=== PATIENT | male | born 1990 | race Caucasian/White ===

== ENCOUNTER 2016-08-05 05:05 | Emergency (ER) | payer OTHER ==
[~2016-08-05] VITALS: Ht 175.3 cm; Wt 158.8 kg
[2016-08-05 05:12] VITALS: BP 140/62
--- NOTE | 2016-08-05 05:14 | NUR ---
PT TAKEN TO BED 3
--- NOTE | 2016-08-05 05:18 | NUR ---
25 Y/O M W/C/O COUGH, CHILLS AND SOB X 4 DAYS. PT STATES HAS A HX OF ASTHMA FROM A YOUNG AGE AND HAS BEING USING INHALERS AT HOME BUT NOT HELPING HIM MUCH. ER MADE AWARE.
[2016-08-05] MEDS ORDERED: ALBUTEROL 0.083% 2.5 MG/3 ML NEBU INH ONE (05:20)
--- NOTE | 2016-08-05 05:26 | NUR ---
Respiratory Therapist at bedside for respiratory intervention.
--- NOTE | 2016-08-05 06:24 | NUR ---
Dr. Krause evaluating patient at bedside.
[2016-08-05] MEDS ORDERED: NACL 0.9% 1,000 ML IV ONE (06:25)
[2016-08-05] MEDS ORDERED: PROMETH/CODEINE 6.25-10MG/5ML 5 ML UDC PO ONE (06:25)
[2016-08-05] MEDS ORDERED: methylPREDNISolone SS 125 MG in WATER STERILE 2 ML IV ONE (06:25)
[2016-08-05 07:06] VITALS: BP 144/74
--- NOTE | 2016-08-05 07:06 | NUR ---
Patient discharged BY DR VELAZQUEZ with v/s stable. Written and verbal after care instructions given and explained BY ER MD. Patient alert, oriented and verbalized understanding of instructions. Ambulatory with steady gait. All questions addressed prior to discharge. ID band removed. Patient advised to follow up with PMD OR RETURN TO ER IF CONDITION WORSENS. Rx of ROBITUSSIN, AUGMENTIN AND MEDROL DOSEPAK given. Patient educated on indication of medication including possible reaction and side effects. Opportunity to ask questions provided and answered.
== END 2016-08-05 07:06 | disposition home or self-care (01) ==
LOC: MED 05:05
DX: J20.9 Acute bronchitis, unspecified (principal); J04.0 Acute laryngitis; J02.9 Acute pharyngitis, unspecified
CPT/HCPCS: 94640; 96374; 99284; J2930; J7030; J7613

== ENCOUNTER 2016-09-27 21:11 | Emergency (ER) | payer OTHER ==
[~2016-09-27] VITALS: Ht 175.3 cm; Wt 147.4 kg
[2016-09-27 21:34] VITALS: BP 150/85
--- NOTE | 2016-09-27 23:35 | NUR ---
PATIENT LEFT WITHOUT BEING SEEN BY DR. Nguyen. NO FURTHER CARE PROVIDED FOR PATIENT.
== END 2016-09-27 23:35 | disposition left against medical advice (07) ==
LOC: MED 21:11
DX: R06.02 Shortness of breath (principal); Z53.21 Procedure and treatment not carried out due to patient leaving prior to being seen by health care provider

== ENCOUNTER 2016-10-03 21:05 | Emergency (ER) | payer OTHER ==
[~2016-10-03] VITALS: Ht 175.3 cm; Wt 147.4 kg
[2016-10-03 21:11] VITALS: BP 134/111
--- NOTE | 2016-10-03 21:43 | NUR ---
BIB WHEELCHAIR TO ER BED 4 FROM XRAY
--- NOTE | 2016-10-03 21:45 | NUR ---
PATIENT PRESENTS TO ED WITH DIFF OF BREATHING , STARTED IN THE MORNING 1000HOURS AND WITH COUGH . PT DENIES N/V/D; SKIN IS PINK/WARM/DRY; AAOX4 WITH EVEN AND STEADY GAIT; HR EVEN AND REGULAR; PT DENIES ANY FEVER, CP, AT THIS TIME; PATIENT STATES PAIN OF 8/10 AT THIS TIME; VSS; PATIENT POSITIONED FOR COMFORT; HOB ELEVATED; BEDRAILS UP X2; BED DOWN. ER MD MADE AWARE OF PT STATUS.
[2016-10-03] MEDS ORDERED: LORazepam 2 MG/ML VIAL IM/IVP ONE (22:00)
[2016-10-03 22:42] VITALS: BP 127/91
--- NOTE | 2016-10-03 22:42 | NUR ---
Patient discharged with v/s stable. Written and verbal after care instructions given and explained. Patient alert, oriented and verbalized understanding of instructions. Ambulatory with steady gait. All questions addressed prior to discharge. ID band removed. Patient advised to follow up with PMD. Rx of PHENERGAN DM SYRUP given. Patient educated on indication of medication including possible reaction and side effects. Opportunity to ask questions provided and answered.
== END 2016-10-03 22:42 | disposition home or self-care (01) ==
LOC: MED 21:05
DX: F41.9 Anxiety disorder, unspecified (principal); F32.9 Major depressive disorder, single episode, unspecified; R03.0 Elevated blood-pressure reading, without diagnosis of hypertension
CPT/HCPCS: 71010; 96372; 99284; J2060; 99283

== ENCOUNTER 2016-12-19 22:16 | Inpatient (IN) | payer OTHER ==
[~2016-12-19] VITALS: Ht 170.2 cm; Wt 141.5 kg
--- NOTE | 2016-12-19 22:29 | NUR ---
PT. AMBULATES TO ER BED 6
[2016-12-19 22:30] VITALS: BP 162/99
--- NOTE | 2016-12-19 22:30 | NUR ---
25Y/M PT. PRESENTS TO ED WITH C/O RT. ARMPIT ABSCESS X 3 DAYS. NO MEDICAL HX. AAO X4, AMBULATORY WITH STEADY GAIT. RESPIRATIONS ROOM AIR, EVEN AND UNLABORED. RT. ARMPIT ERYTHEMA AND SWOLLEN. C/O PAIN 10/30.VS, TACHYCARDIA. ER MD MADE AWARE OF PT. STATUS.
[2016-12-19] MEDS ORDERED: NACL 0.9% 1,000 ML IV ONE (23:00)
[2016-12-19] MEDS ORDERED: KETOROLAC 30 MG/ML VIAL IVP ONE (23:00)
[2016-12-19] MEDS ORDERED: CLINDAMYCIN 900 MG in DEXTROSE 5% 100 ML IV ONE (23:00)
[2016-12-19] MEDS ORDERED: CLINDAMYCIN 900 MG/6 ML VIAL IV ONE (23:15)
[2016-12-19 23:30] LABS: HEMATOCRIT 45.3 % (36-52); HEMOGLOBIN 15.1 g/dL (12.0-18.0); MEAN CORPUSCULAR HEMOGLOBIN 29 pg (27-31); MEAN CORPUSCULAR HGB CONC 33 g/dL (33-37); MEAN CORPUSCULAR VOLUME 88 fL (80-94); PLATELET COUNT (AUTO) 216 K/uL (140-450); RED BLOOD CELL COUNT(AUTO) 5.15 MIL/uL (4.20-6.10); RED CELL DISTRIBUTION WIDTH 12.5 % (11.6-13.7)
--- NOTE | 2016-12-19 23:35 | NUR ---
CHANGE GEN TO LEVEL 3, PT. NEEDS 2 RESOURCES
[2016-12-19 23:48] LABS: ALBUMIN 3.3 g/dL (3.4-5.0); ANION GAP 17.3 (8-16); CARBON DIOXIDE 20.7 mmol/L (21-32); CREATININE 1.3 mg/dL (0.7-1.3); TOTAL BILIRUBIN 1.3 mg/dL (0.0-1.0)
[2016-12-19 23:53] LABS: PROTHROMBIN TIME 10.9 secs (10.8-13.4); WHITE BLOOD COUNT (AUTO) 19.1 K/uL (4.8-10.8)
[2016-12-19 23:54] LABS: EOSINOPHILS % (MANUAL) 1 % (0-4); LYMPHOCYTES % (MANUAL) 5 % (20-46); MONOCYTES % (MANUAL) 4 % (5-12)
[2016-12-20] MEDS ORDERED: POTASSIUM CHLORIDE 10 MEQ TABER PO ONE (00:05)
[2016-12-20] MEDS ORDERED: ACETAMINOPHEN 325 MG TAB PO PRN (00:15)
[2016-12-20] MEDS ORDERED: HYDROcodone/APAP 7.5/325 MG 1 TAB PO PRN (00:15)
[2016-12-20] MEDS ORDERED: ONDANSETRON 4 MG/2 ML VIAL IVP PRN ×2 (00:15→10:55)
--- NOTE | 2016-12-20 00:35 | NUR ---
Patient will be admitted to care of DR. JAMESON. Admited to TELEMETRY. Will go to [id number]. Belongings list completed. Report to BEST WILEY.
[2016-12-20 00:50] VITALS: BP 136/79
--- NOTE | 2016-12-20 00:50 | NUR ---
PATIENT CAME FROM THE ER VIA GURNEY. WAS ABLE TO AMBULATE TO THE BED, ACCOMPANIED WITH GIRLFRIEND. PT IS AOX4, ABLE TO MAKE NEEDS KNOWN. NO S/S OF DISTRESS. NO COMPLAINTS OF PAIN AT THIS TIME. NOTED WITH AN ABCESS TO THE RIGHT UNDERARM, PACKED BY DR. GALINDO IN THE ER. WITH AN IV TO THE LEFT AC 18 G, INTACT AND PATENT. INITIAL ASSESSMENT DONE. ON TELE MONITORING. ORIENTED PATIENT TO THE UNIT, VERBALIZED UNDERSTANDING. WILL CONTINUE TO MONITOR. ALL NEEDS ATTENDED. CALL LIGHT WITHIN REACH. SAFETY CHECKS IN PLACE.
[2016-12-20 00:52] LABS: CHOL/HDL RATIO 3.5 (1-4.5); FREE T4 (FREE THYROXINE) 1.21 ng/dL (0.76-1.46); MAGNESIUM 1.9 mg/dL (1.8-2.4); PHOSPHORUS 2.4 mg/dL (2.5-4.9); THYROID STIMULATING HORMONE 1.64 uIU/mL (0.34-3.74)
[2016-12-20] MEDS: NACL 0.9% 1,000 ML IV SCH ×5 (00:55→20:21)
[2016-12-20] MEDS ORDERED: SODIUM PHOS / POTASSIUM PHOS 1 PKT PDR PO ONE (01:10)
--- NOTE | 2016-12-20 02:00 | NUR ---
MADE ROUNDS, PATIENT ASLEEP. NO S/S OF DISTRESS. WILL CONTINUE TO MONITOR FOR ANY CHANGES.
[2016-12-20 02:47] LABS: APPEARANCE,URINE CLEAR (CLEAR); BILIRUBIN,URINE 1+ (NEGATIVE); BLOOD, URINE TRACE-I (NEGATIVE); COLOR,URINE ORANGE (YELLOW); LEUKOCYTE ESTERASE ,URINE NEGATIVE (NEGATIVE); NITRITE, URINE NEGATIVE (NEGATIVE); UGLUCOSE NEGATIVE (NEGATIVE)
[2016-12-20 02:56] LABS: BARBITURATE, URINE NEG. ng/ml (NEG <=200); BENZODIAZEPINE, URINE POS. ng/mL (NEG <=200); CANNABINOID, URINE NEG. ng/mL (NEG <=50); COCAINE, URINE NEG. ng/mL (NEG <=300); OPIATE, URINE NEG. ng/mL (NEG <=2000); PHENCYCLIDINE SCREEN,URINE NEG. ng/mL (NEG <=25)
[2016-12-20 03:31] LABS: HYALINE CASTS, URINE 0-3 /LPF (None Seen); RBC,URINE 0-5 (RARE) /HPF (0-5); WBC,URINE 0-5 (RARE) /HPF (0-5)
[2016-12-20 04:00] VITALS: BP 126/64
--- NOTE | 2016-12-20 04:00 | NUR ---
VITALS STABLE. NO S/S OF DISTRESS. NO COMPLAINTS OF PAIN. WILL CONTINUE TO MONITOR.
--- NOTE | 2016-12-20 05:20 | NUR ---
DUE IV MEDS GIVEN. WILL CONTINUE TO MONITOR.
[2016-12-20] MEDS ORDERED: AMPICILLIN/SULBACTAM 1.5 GM VIAL ONE (05:21)
--- NOTE | 2016-12-20 05:58 | NUR ---
IS GOING TO CT, IN STABLE CONDITION.
[2016-12-20] MEDS ORDERED: AMPICILLIN/SULBACTAM 1.5 GM in NACL 0.9% 50 ML IV SCH (06:00)
--- NOTE | 2016-12-20 06:20 | NUR ---
CAME BACK FROM CT.
--- NOTE | 2016-12-20 07:26 | NUR ---
ENDORSED TO AM SHIFT NURSE FOR CONTINUITY OF CARE, IN STABLE CONDITION
--- NOTE | 2016-12-20 07:59 | NUR ---
RECEIVED REPORT FROM BEST BRAUN. PT IS A/O X 4. VERBALLY RESPONSIVE. ABLE TO MAKE NEEDS KNOWN. DENIES ANY PAIN OR DISCOMFORT. BILATERAL PERRLA NOTED. PT ON RA SATURATING AT 96%. TOLERATING WELL. SR ON MONITOR. ABLE TO AMBULATE INDEPENDENTLY. SKIN IS NONINTACT. R ARMPIT ABSCESS NOTED. L AC 18 GAUGE NOTED. INTACT AND PATENT. SAFETY PRECAUTION MAINTAINED. BED AT LOWEST SETTING. CALL LIGHT WITHIN REACH. WILL CONTINUE TO MONITOR.
[2016-12-20 08:00] VITALS: BP 113/61
--- NOTE | 2016-12-20 08:15 | NUR ---
MEDICATION ADMINISTERED ORDERED. TOLERATED WELL. WILL CONTINUE TO MONITOR
[2016-12-20] MEDS: DOCUSATE SODIUM 100 MG GELCAP PO SCH ×2 (08:28→20:21)
[2016-12-20] MEDS: PANTOPRAZOLE 40 MG INJ VIAL IVP SCH (08:29)
[2016-12-20] MEDS: ALPRAZolam 0.5 MG TAB PO SCH (08:29)
--- NOTE | 2016-12-20 08:30 | NUR ---
WOUND DRESSING CHANGED D/T SOILAGE. AREA CLEANSED WELL. CULTURE COLLECTED PER MD ORDER. SLIGHT DRAINAGE NOTED.
[2016-12-20] MEDS ORDERED: CLINDAMYCIN 600 MG in DEXTROSE 5% 50 ML IV SCH (09:00)
--- NOTE | 2016-12-20 09:25 | NUR ---
WOUND CARE EVALUATION NOTE REASON FOR EVALUATION: ABSCESS RIGHT AXILLARY COMPLETE SKIN ASSESSMENT DONE ON THIS 25 Y/O MALE PATIENT FROM HOME TO [facility], WITH INITIAL DIAGNOSIS OF GROWING ABSCESS RIGHT UNDER ARMPIT AND ABDOMINAL PAIN. PAST MEDICAL HX INCLUDES GERD. ALL ABOVE INFORMATION WAS OBTAINED FROM THE PT. AND ADMISSION H&P. LABS ARE WBC 19.1, H/H 15.1/45.3,PT/INR 10.9/1.1 AND PTT 41.6. BLOOD CULTURE PENDING. MEDICATIONS INCLUDE CLINDAMYCIN, PANTOPRAZOLE, ALPRAZOLAM, AND HYDROCODONE. PATIENT IS AAOX4, WELL HYDRATE, AMBULATED TO BATHROOM. SKIN WARN AND DRY, WNL. SKIN TURGOR TIGHT. BLE HAIR GROWTH, BILATERAL PEDAL PULSES PRESENT AND STRONG. CAPILLARY REFILLED <3 SEC. INITIAL PLAN OF CARE AND POST I&D WOUND CARE EDUCATION TEACH TO PT. AND PT VERBALIZES UNDERSTANDING. POC DISCUSSED WITH PRIMARY RN. INTEGUMENTARY: RIGHT AXILLARY - ERYTHEMA, EDEMA WITH INFLAMMATION TENDERNESS. MODERATE AMOUNT PURULENT DRAINAGE, NO ODOR. RECOMMENDATIONS: -I&D -POST I&D WOUND CARE IF AGREEABLE WITH SURGEON/ PRIMARY PHYSICIAN: CLEANSE WOUND WITH NS. PAT DRY, PACK WITH IODOFORM BID AND PRN IF SOILING -KEEP AREA DRY AND CLEAN AT ALL MADAY -ASSESS AND MONITOR WOUND SITE DURING WOUND CARE AND NOTIFY PHYSICIAN FOR ANY S/S INFECTION OR CHANGE OF CONDITION RECOMMENDATIONS DISCUSSED WITH PRIMARY RN. WILL FOLLOW UP PATIENT Q 7-10 DAYS AND PRN. PLEASE CONTACT WOUND CARE NURSE FOR ANY CONCERNS, QUESTIONS AND CHANGES IN SKIN CONDITION.
--- NOTE | 2016-12-20 10:13 | NUR ---
PT TO SURGERY. FIRE SPRINKLER APPARATUS INSPECTOR AND ME PRESENT DURING SURGERY D/T PT'S TELE STATUS. WILL CONTINUE TO MONITOR Addendum: 12/20/16 at 1054 by Sascha Garcia RN PER CHARGE, OKAY FOR ME TO RETURN TO FLOOR. WILL CONTINUE TO MONITOR UPON PT'S RETURN
--- NOTE | 2016-12-20 10:15 | NUR ---
FAXED INITIAL REVIEW TO PATRICIA [phone] PHONE [phone] NERISSA
[2016-12-20] MEDS ORDERED: DEXAMETHASONE 4 MG/ML VIAL ONE (10:20)
[2016-12-20] MEDS ORDERED: ONDANSETRON 4 MG/2 ML VIAL ONE (10:20)
[2016-12-20] MEDS ORDERED: SEVOFLURANE 250 ML BTL INH ONE (10:20)
[2016-12-20] MEDS ORDERED: PROPOFOL 200 MG/20 ML VIAL IV ONE (10:20)
[2016-12-20] MEDS ORDERED: MEPERIDINE 50 MG/ML SYR ONE (10:31)
[2016-12-20] MEDS ORDERED: fentaNYL 0.05 MG/ML VIAL ONE (10:31)
[2016-12-20] MEDS ORDERED: MIDAZOLAM 2 MG/2 ML VIAL ONE (10:31)
[2016-12-20] MEDS ORDERED: HYDROGEN PEROXIDE 3% 240 ML BTL TP ONE (10:40)
[2016-12-20] MEDS: LACTATED RINGERS 1,000 ML IV SCH ×2 (10:54→17:15)
[2016-12-20] MEDS ORDERED: diphenhydrAMINE 50 MG/ML VIAL IVP PRN (10:55)
[2016-12-20] MEDS ORDERED: HYDROmorphone 1 MG/ML AMP IVP PRN (10:55)
[2016-12-20] MEDS ORDERED: MEPERIDINE 25 MG/ML SYR IVP PRN (10:55)
--- NOTE | 2016-12-20 11:23 | NUR ---
PATIENT HAS BEEN SCREENED AND CATEGORIZED HIGH NUTRITION RISK. PATIENT WILL BE SEEN WITHIN 1-2 DAYS OF ADMISSION. 12/20/16-12/21/[address]
[2016-12-20 12:00] VITALS: BP 123/70
--- NOTE | 2016-12-20 12:00 | NUR ---
RECEIVED REPORT FROM OR NURSE. PT IS STABLE. A/O X 4. VERBALLY RESPONSIVE. NO C/O PAIN. GIRLFRIEND AT BEDSIDE. WILL CONTINUE TO MONITOR
--- NOTE | 2016-12-20 14:20 | NUR ---
PT A/O X 4. VERBALLY RESPONSIVE. NO C/O PAIN. WILL CONTINUE TO MONITOR
--- NOTE | 2016-12-20 15:45 | NUR ---
12/20/16 RD INITIAL ASSESSMENT COMPLETED PLEASE REFER TO NUTRITION ASSESSMENT UNDER CARE ACTIVITY FOR ESTIMATED NUTRITIONAL NEEDS. 1. WHEN MEDICALLY FEASIBLE, INITIATE PO DIET TO START ON CLEAR LIQUID DIET AND ADVANCE TOLERATED TO REGULAR DIET 2. ADD VITAMIN C (500 MG/DAILY) FOR WOUND HEALING 3. PROVIDE NUTRITION THERAPY EDUCATION NEEDED 4. RD TO FOLLOW-UP MODERATE RISK, 3-[address]
[2016-12-20 16:00] VITALS: BP 116/76
[2016-12-20] MEDS: CLINDAMYCIN 600 MG in DEXTROSE 5% 50 ML IV SCH (17:11)
[2016-12-20] MEDS ORDERED: CLINDAMYCIN 600 MG/4 ML VIAL ONE (17:13)
--- NOTE | 2016-12-20 19:20 | NUR ---
RECEIVED REPORT FROM DAY RN FOR CONTINUITY OF CARE. PATIENT IS ALERT AND ORIENTED X4, DISCUSSED PLAN OF CARE WITH PATIENT, VERBALIZED UNDERSTANDING. SHIFT ASSESSMENT DONE, VITAL SIGNS STABLE. NO RESPIRATORY DISTRESS NOTED ON ROOM AIR. PATIENT DENIES PAIN. IV TO LT FA PATENT AND INFUSING FLUIDS WELL. ABSCESS TO RT AXILLA, DRESSING DRY AND INTACT. FAMILY MEMBERS AT BEDSIDE. SAFETY PRECAUTIONS ENFORCED, CALL LIGHT WITHIN REACH. WILL CONTINUE TO MONITOR.
[2016-12-20 20:00] VITALS: BP 133/90
--- NOTE | 2016-12-20 20:21 | NUR ---
DUE MEDICATIONS ADMINISTERED, TOLERATED WELL AND VERBALIZED UNDERSTANDING OF USE. PATIENT RESTING IN BED NO DISTRESS NOTED, FAMILY MEMBERS AT BEDSIDE. CALL LIGHT WITHIN REACH.
--- NOTE | 2016-12-20 22:00 | NUR ---
PATIENT AMBULATING IN ROOM, NO DISTRESS OR DISCOMFORT NOTED. CALL LIGHT AT BEDSIDE, WILL CONTINUE TO MONITOR.
[2016-12-21] VITALS: BP 131/62
[2016-12-21] MEDS: CLINDAMYCIN 600 MG in DEXTROSE 5% 50 ML IV SCH ×4 (00:06→17:29)
--- NOTE | 2016-12-21 00:08 | NUR ---
VITAL SIGN STABLE, PATIENT C/O MODERATE PAIN TO ABSCESS MEDICATED PER MD ORDER. PATIENT HAS INTERMITTENT COUGH NOTED, REFUSED ANY MEDICATION FOR COUGH. WILL CONTINUE TO MONITOR.
--- NOTE | 2016-12-21 02:15 | NUR ---
PATIENT AWAKE WATCHING TV, NO S/S OF DISTRESS OR DISCOMFORT NOTED. CALL LIGHT WITHIN REACH, WILL CONTINUE TO MONITOR.
[2016-12-21 04:00] VITALS: BP 146/70
--- NOTE | 2016-12-21 04:15 | NUR ---
VITAL SIGNS STABLE, PATIENT C/O ABDOMINAL DISCOMFORT, REFUSED PAIN MEDICATION. INFORMED DR. GALINDO OF PATIENTS COMPLAINT.
[2016-12-21] MEDS ORDERED: SIMETHICONE 40 MG/0.6 ML PO ONE (04:40)
[2016-12-21] MEDS: NACL 0.9% 1,000 ML IV SCH ×2 (05:04→17:30)
[2016-12-21 05:50] LABS: BASOPHILS # (AUTO) 0.2 K/uL (0.00-0.22); BASOPHILS % (AUTO) 1.1 % (0.0-2.0); EOSINOPHILS # (AUTO) 0.3 K/uL (0-0.4); HEMATOCRIT 39.5 % (36-52); HEMOGLOBIN 13.5 g/dL (12.0-18.0); LYMPHOCYTES # (AUTO) 1.5 K/uL (2.0-11.5); LYMPHOCYTES % (AUTO) 10.4 % (20.5-51.1); MEAN CORPUSCULAR HEMOGLOBIN 30 pg (27-31); MEAN CORPUSCULAR HGB CONC 34 g/dL (33-37); MEAN CORPUSCULAR VOLUME 88 fL (80-94); MONOCYTES # (AUTO) 0.6 K/uL (0.8-1.0); MONOCYTES % (AUTO) 4.3 % (1.7-9.3); NEUTROPHILS # (AUTO) 12.1 K/uL (1.8-7.7); NEUTROPHILS % (AUTO) 82.2 % (42.2-75.2); PLATELET COUNT (AUTO) 211 K/uL (140-450); RED BLOOD CELL COUNT(AUTO) 4.48 MIL/uL (4.20-6.10); RED CELL DISTRIBUTION WIDTH 12.4 % (11.6-13.7); WHITE BLOOD COUNT (AUTO) 14.7 K/uL (4.8-10.8)
--- NOTE | 2016-12-21 06:08 | NUR ---
DUE MEDICATIONS ADMINISTERED, PATIENT AWAKE RESTING IN BED. ALL NEEDS MET AT THIS TIME.
[2016-12-21 06:14] LABS: ANION GAP 16.1 (8-16); CREATININE 0.9 mg/dL (0.7-1.3); POTASSIUM 3.1 mmol/L (3.5-5.1)
[2016-12-21 06:18] LABS: PHOSPHORUS 3.1 mg/dL (2.5-4.9)
--- NOTE | 2016-12-21 07:22 | NUR ---
ENDORSED PATIENT TO DAY RN FOR CONTINUITY OF CARE, PATIENT IS IN STABLE CONDITION.
--- NOTE | 2016-12-21 07:22 | NUR ---
RECEIVED REPORT FROM MUSICAL INSTRUMENT MECHANIC RN. PATIENT IS ASLEEP AT THIS TIME. NO SIGNS AND SYMPTOMS OF DISTRESS NOTED AT THIS TIME.
[2016-12-21] MEDS ORDERED: SIMETHICONE 80 MG TAB.CHEW PO SCH (07:28)
[2016-12-21 08:00] VITALS: BP_SYST 122; BP_SYST 139; BP_DIAS 73; BP_DIAS 75
[2016-12-21] MEDS: CHLORHEXADINE GLUC 2% CLOTH TP SCH (09:00)
[2016-12-21] MEDS: DOCUSATE SODIUM 100 MG GELCAP PO SCH ×2 (09:46→21:22)
[2016-12-21] MEDS: PANTOPRAZOLE 40 MG INJ VIAL IVP SCH (09:48)
[2016-12-21] MEDS: ALPRAZolam 0.5 MG TAB PO SCH (09:48)
[2016-12-21 12:00] VITALS: BP 139/75
--- NOTE | 2016-12-21 12:00 | NUR ---
TELE BOX REMOVED ORDERED. PT IS NOW ON MED SURG STATUS.
--- NOTE | 2016-12-21 12:26 | NUR ---
CM NOTE CONCURRENT REVIEW TO [facility] / FAX# [phone], ATTN: NERISSA #[phone] [id number]
[2016-12-21] MEDS: MUPIROCIN 2% OINT 22 GM TUBE TP SCH ×2 (12:40→21:25)
--- NOTE | 2016-12-21 13:00 | NUR ---
ASSISTED BEST SPICER WITH WET TO DRY DRESSING CHANGE ON PATIENT. PATIENT TOLERATED WELL, NO COMPLAINTS OF PAIN AT THIS TIME. NO SIGNS AND SYMPTOMS OF ACUTE DISTRESS NOTED AT THIS TIME.
--- NOTE | 2016-12-21 13:15 | NUR ---
1ST POST OP DAY DRESSING DONE, PHOTO TAKEN AND DOCUMENTED.
--- NOTE | 2016-12-21 14:45 | NUR ---
DR. ARIZMENDI WANTED TO SEE WOUND, ACCOMPANIED HIM TO PATIENT BEDSIDE TO OPEN TOP OF DRESSING TO SHOW HIM. NO NEW ORDERS AT THIS TIME.
[2016-12-21] MEDS ORDERED: KCL 20 MEQ/WATER INJ PREMIX 100 ML IV SCH (16:30)
[2016-12-21] MEDS ORDERED: POTASSIUM CHLORIDE 40 MEQ, LIDOCAINE 1% 25 MG in NACL 0.9% 250 ML IV SCH (17:00)
--- NOTE | 2016-12-21 18:00 | NUR ---
MRSA EDUCATION GIVEN TO PATIENT, SIGNED DOCUMENT. PATIENT VERBALIZED UNDERSTANDING REGARDING THE TEACHING AND PRECAUTIONS.
--- NOTE | 2016-12-21 19:27 | NUR ---
ENDORSED PATIENT TO PORTABLE TRACK LINE MARKER RN. PATIENT SITTING UP IN BED, HAS FAMILY AT BEDSIDE. PATIENT IN STABLE CONDITION.
--- NOTE | 2016-12-21 19:55 | NUR ---
RECEIVED HANDOFF REPORT FROM AM RN. PATIENT IS A&OX4. IV SITE PATENT AND INTACT. PATIENT DENIES PAIN. NO SIGNS OR SYMPTOMS OF ACUTE DISTRESS NOTED. SAFETY MEASURES ENSURED, CALL LIGHT WITHIN REACH. WILL CONTINUE TO MONITOR.
--- NOTE | 2016-12-21 21:33 | NUR ---
PATIENT SITTING UP IN BED. NO SIGNS OR SYMPTOMS OF ACUTE DISTRESS. PM MEDS GIVEN. CALL LIGHT WITHIN REACH. WILL CONTINUE TO MONITOR.
[2016-12-21] MEDS ORDERED: LORazepam 2 MG/ML VIAL IVP PRN (21:50)
--- NOTE | 2016-12-21 22:17 | NUR ---
PATIENT STATES HAVING A PANIC ATTACK. ATIVAN GIVEN. CALL LIGHT WITHIN REACH. WILL CONTINUE TO MONITOR.
[2016-12-22] VITALS: BP 133/75
--- NOTE | 2016-12-22 00:53 | NUR ---
PATIENT AWAKE WATCHING TV. PATIENT DENIES PAIN. ANTIBIOTICS GIVEN ORDERED. NO SIGNS OR SYMPTOMS OF ACUTE DISTRESS. CALL LIGHT WITHIN REACH. WILL CONTINUE TO MONITOR.
[2016-12-22] MEDS: CLINDAMYCIN 600 MG in DEXTROSE 5% 50 ML IV SCH ×3 (00:54→11:36)
--- NOTE | 2016-12-22 03:00 | NUR ---
PATIENT SLEEPING. NO SIGNS OR SYMPTOMS OF ACUTE DISTRESS. CALL LIGHT WITHIN REACH. WILL CONTINUE TO MONITOR.
--- NOTE | 2016-12-22 05:55 | NUR ---
PATIENT AWAKE. ADMINISTERED ANTIBIOTICS. PATIENT DENIES PAIN. NO SIGNS AND SYMPTOMS OF ACUTE DISTRESS. CALL LIGHT WITHIN REACH. WILL CONTINUE TO MONITOR.
[2016-12-22 05:56] LABS: BASOPHILS # (AUTO) 0.1 K/uL (0.00-0.22); BASOPHILS % (AUTO) 1.1 % (0.0-2.0); EOSINOPHILS # (AUTO) 0.3 K/uL (0-0.4); EOSINOPHILS % (AUTO) 3.1 % (0.0-4.0); HEMOGLOBIN 13.8 g/dL (12.0-18.0); LYMPHOCYTES # (AUTO) 2.3 K/uL (2.0-11.5); LYMPHOCYTES % (AUTO) 26.2 % (20.5-51.1); MEAN CORPUSCULAR HEMOGLOBIN 30 pg (27-31); MEAN CORPUSCULAR HGB CONC 34 g/dL (33-37); MEAN CORPUSCULAR VOLUME 89 fL (80-94); MONOCYTES # (AUTO) 0.5 K/uL (0.8-1.0); MONOCYTES % (AUTO) 5.9 % (1.7-9.3); NEUTROPHILS # (AUTO) 5.5 K/uL (1.8-7.7); NEUTROPHILS % (AUTO) 63.7 % (42.2-75.2); PLATELET COUNT (AUTO) 230 K/uL (140-450); RED BLOOD CELL COUNT(AUTO) 4.62 MIL/uL (4.20-6.10); RED CELL DISTRIBUTION WIDTH 12.4 % (11.6-13.7); WHITE BLOOD COUNT (AUTO) 8.7 K/uL (4.8-10.8)
[2016-12-22 06:22] LABS: MAGNESIUM 1.9 mg/dL (1.8-2.4); PHOSPHORUS 4.6 mg/dL (2.5-4.9)
[2016-12-22 06:39] LABS: ANION GAP 11.8 (8-16); CARBON DIOXIDE 25.7 mmol/L (21-32); CREATININE 0.9 mg/dL (0.7-1.3); POTASSIUM 3.5 mmol/L (3.5-5.1)
--- NOTE | 2016-12-22 07:18 | NUR ---
GAVE HANDOFF REPORT TO AM RN. PATIENT REMAINS STABLE
--- NOTE | 2016-12-22 07:19 | NUR ---
RECEIVED CARE OF PT FROM LIZETT JEWELL AT BEDSIDE. PT IS A&OX4. PT HAS IV ON L HAND 20 G RUNNING NS@10ML/HR. NO DISTRESS NOTED IN PT. PT IS S/P R AXILLA I&D, WILL CHANGE DSG AND PERFORM IRRIGATION AND WOUND CARE ORDERED. PT IS AMBULATORY. NO COMPLAINTS AT THIS TIME. NO DISCOMFORT OR PAIN ON THE R AXILLA. CALL LIGHT WITHIN REACH. WILL CONTINUE TO MONITOR.
[2016-12-22] MEDS ORDERED: SULF-59 PO (08:22)
[2016-12-22] MEDS: PANTOPRAZOLE 40 MG INJ VIAL IVP SCH (08:28)
[2016-12-22] MEDS: DOCUSATE SODIUM 100 MG GELCAP PO SCH (08:29)
[2016-12-22] MEDS: MUPIROCIN 2% OINT 22 GM TUBE TP SCH (08:29)
[2016-12-22] MEDS: ALPRAZolam 0.5 MG TAB PO SCH (08:29)
[2016-12-22] MEDS: CHLORHEXADINE GLUC 2% CLOTH TP SCH (08:30)
[2016-12-22] MEDS ORDERED: BACTO TP (08:53)
[2016-12-22] MEDS ORDERED: CHLO118S2 TP (08:53)
--- NOTE | 2016-12-22 08:58 | NUR ---
PER PT, DR ALREADY CHANGED DSG THIS MORNING, INFORMED PT THE NEED TO CHANGE DSG AGAIN AND TAKE PICTURE BEFORE DISCHARGE, PT VERBALIZED UNDERSTANDING. CALL LIGHT WITHIN REACH. WILL CONTINUE TO MONITOR.
--- NOTE | 2016-12-22 08:58 | NUR ---
WOUND CARE RE-EVALUATION NOTE REASON FOR EVALUATION: S/P I&D ABSCESS RIGHT AXILLARY COMPLETE SKIN ASSESSMENT DONE ON THIS 25 Y/O MALE PATIENT FROM HOME TO [facility], WITH INITIAL DIAGNOSIS OF GROWING ABSCESS RIGHT UNDER ARMPIT AND ABDOMINAL PAIN. PAST MEDICAL HX INCLUDES GERD. ALL ABOVE INFORMATION WAS OBTAINED FROM THE PT. AND ADMISSION H&P. LABS 12/22/16 ARE WBC 8.7, H/H 13.8/41, GLUCOSE 93, PT/INR 12/19/16 WERE 10.9/1.1 AND PTT 41.6. BLOOD CULTURE NO GROWTH AFTER 48H. MEDICATIONS INCLUDE CLINDAMYCIN, PANTOPRAZOLE, ALPRAZOLAM, AND HYDROCODONE. PATIENT IS AAOX4, SKIN WARN AND DRY, WNL. SKIN TURGOR TIGHT. BLE HAIR GROWTH, BILATERAL PEDAL PULSES PRESENT AND STRONG. CAPILLARY REFILLED <3 SEC. PLAN OF CARE AND WOUND CARE EDUCATION PROVIDE TO PT. AND PT VERBALIZES UNDERSTANDING. POC DISCUSSED WITH PRIMARY RN. INTEGUMENTARY: RIGHT AXILLARY - S/P I&D SITE CLEAN, SMALL AMOUNT OF SANGUINEOUS DRAINAGE, NO ODOR. RECOMMENDATIONS: -CLEANSE WOUND WITH NS. PAT DRY, PACK WITH IODOFORM QD AND PRN IF SOILING -KEEP AREA DRY AND CLEAN AT ALL MADAY -ASSESS AND MONITOR WOUND SITE DURING WOUND CARE AND NOTIFY PHYSICIAN FOR ANY S/S INFECTION OR CHANGE OF CONDITION RECOMMENDATIONS DISCUSSED WITH PRIMARY RN. WILL FOLLOW UP PATIENT Q 7-10 DAYS AND PRN. PLEASE CONTACT WOUND CARE NURSE FOR ANY CONCERNS, QUESTIONS AND CHANGES IN SKIN CONDITION. Addendum: 12/22/16 at 0909 by Jamari Chapman RN (Grace) -CLEANSE WOUND WITH NS. PAT DRY, PACK WITH IODOFORM , COVER WITH DRY DRESSING AND SECURE WITH TAPE QD AND PRN IF SOILING
[2016-12-22] MEDS ORDERED: ASCORBIC ACID 500 MG TAB PO SCH (09:00)
--- NOTE | 2016-12-22 09:50 | NUR ---
SS NOTE: PER ELEANOR FROM [facility] ([phone]), THEY WILL REVIEW PT'S INFORMATION AND SEE IF THEY HAVE STAFFING TO CARE FOR PT PER WESLEY FROM [facility], THEY ARE UNABLE TO ACCEPT PT DUE TO STAFFING ISSUES WITH THEIR AGENCY PER JENNIFER FROM [facility], THEY ARE UNABLE TO ACCEPT PT DUE TO STAFFING ISSUES WITH THEIR AGENCY PER NICK FROM [facility], THEY DO NOT SERVICE THE [place] PER YAO FROM [facility], THEY ARE UNABLE TO ACCEPT PT DUE TO STAFFING ISSUES WITH THEIR AGENCY PER ALMAS FROM [facility], THEY ARE NOT ACCEPTING [facility] PER PAIGE FROM [facility], THEY ARE UNABLE TO ACCEPT PT DUE TO STAFFING ISSUES WITH THEIR AGENCY I LEFT A MESSAGE FOR [facility] IN ADMISSIONS FOR [facility] PER ALVARO FROM [facility], THEY DO NOT HAVE ANY NURSING THAT CAN ACCOMMODATE WOUND CARE NEEDS
[2016-12-22] MEDS ORDERED: LACT1.4C PO (10:07)
--- NOTE | 2016-12-22 10:09 | NUR ---
FAXED CONCURRENT REVIEW TO PATRICIA [phone] PHONE [phone] NERISSA Hannon [id number]
--- NOTE | 2016-12-22 10:50 | NUR ---
SS NOTE: I SPOKE WITH PT BEDSIDE AND CONFIRMED HIS ADDRESS FOR HOME HEALTH. HE STATED THAT HE WILL BE GOING TO HIS GIRLFRIEND'S HOUSE UPON DISCHARGE ([address] [place] [address]).
--- NOTE | 2016-12-22 10:55 | NUR ---
PT IS SLEEPING IN BED. NO DISTRESS NOTED. CALL LIGHT WITHIN REACH. WILL CONTINUE TO MONITOR.
--- NOTE | 2016-12-22 11:05 | NUR ---
SS NOTE: PER ELEANOR FROM [facility] ([phone]), THEY ARE ABLE TO ACCEPT PT IF THEY RECEIVE A HARD COPY AUTH FROM [facility]. [place] [facility].
--- NOTE | 2016-12-22 11:20 | NUR ---
CALLED PARVEEN FROM [facility] AND INFORMED HER THAT THE PATIENT WILL BE GOING TO HIS GIRLFRIENDS HOUSE IN [place]. I INFORMED PARVEEN THAT [facility] WILL TAKE THE PATIENT BUT NEEDS A HARD COPY OF THE AUTH. PARVEEN TO CALL ME BACK.
[2016-12-22 11:22] VITALS: BP 135/88
--- NOTE | 2016-12-22 12:00 | NUR ---
CLEANED AND CHANGED DSG FOR PT'S R AXILLA WOUND. DIMENSIONS 8X3X2.5 CM, THE SMALL SUPERFICIAL CUT ABOVE THE BIG WOUND IS 2.7CM LONG. IRRIGATED, PACKED, WET TO DRY DSG ORDERED. PICTURE TAKEN.
--- NOTE | 2016-12-22 12:32 | NUR ---
CALLED PATRICIA AND SPOKE WITH PARVEEN ABOUT THE AUTH FOR [facility]. SHE STILL DOESN'T HAVE THE AUTH AND SHE WILL INFORM NERISSA AT [place].
--- NOTE | 2016-12-22 13:34 | NUR ---
PT'S DSG IS LEAKING SOME BLOOD, PACKING INTACT, APPLIED A NEW DSG. PT TOLERATED WELL. CALL LIGHT WITHIN REACH. WILL CONTINUE TO MONITOR.
--- NOTE | 2016-12-22 14:45 | NUR ---
CALLED PATRICIA AT [phone] AND SPOKE WITH PARVEEN ABOUT THE HARD AUTH FOR [facility]. SHE SAID SHE WOULD CALL ME BACK.
--- NOTE | 2016-12-22 15:10 | NUR ---
WENT OVER DC PAPERWORK WITH PT, PT VERBALIZED UNDERSTANDING AND SIGNED ALL APPROPRIATE PAPERWORK. INFORMED PT THAT WE ARE STILL WAITING HOME HEALTH ARRANGEMENT, PT VERBALIZED UNDERSTANDING. WILL UPDATE PT. CALL LIGHT WITHIN REACH. WILL CONTINUE TO MONITOR.
--- NOTE | 2016-12-22 15:26 | NUR ---
SPOKE WITH NERISSA FROM [place]. THE AUTH FOR [facility] IS [id number]. SHE SAID SHE WOULD HAVE PARVEEN FAX [facility] A HARD COPY. FAX [phone]. I CALLED TYRA FROM [facility] AND GAVE HER THE AUTH NUMBER AND INFORMED HER THAT [facility] WILL FAX A HARD COPY TO HER. SHE SAID THEY WILL START TOMORROW. CALLED BRAD JEWELL AND INFORMED HER.
--- NOTE | 2016-12-22 15:55 | NUR ---
PT MADE AWARE OF [facility] CALLING HIM TOMORROW TO SCHEDULE HOME HEALTH NURSING. PT VERBALIZED UNDERSTANDING. GAVE PT SUPPLY OF ISLAND DSG, GAUZE, SKIN PROTECTANT FOR TODAY.
--- NOTE | 2016-12-22 15:59 | NUR ---
IV REMOVED CANNULA INTACT. ALL BANDS CUT OFF. PT REFUSED WHEELCHAIR. WALKED PT OUT OF HOSPITAL. PT TOOK ALL BELONGINGS. PT IN STABLE CONDITION.
--- NOTE | 2016-12-25 08:02 | NUR ---
RECEIVED HARD COPY FROM PATRICIA FOR APPROVAL FOR REF #[id number] FAXED DISCHARGE SUMMARY TO PATRICIA
== END 2016-12-22 15:59 | disposition home health service (06) | DRG 720 ==
LOC: MED 22:16 → MTU 12-20 00:15
PROVIDERS: ADMIT Family Medicine; ATTEND Family Medicine
PROC: 0W980ZZ Drainage of Chest Wall, Open Approach (ICD-10-PCS; 2016-12-20)
PROC: 0X940ZZ Drainage of Right Axilla, Open Approach (ICD-10-PCS; principal; 2016-12-20 10:30)
DX: A41.9 Sepsis, unspecified organism (principal); N17.0 Acute kidney failure with tubular necrosis; L02.213 Cutaneous abscess of chest wall; E44.1 Mild protein-calorie malnutrition; E87.1 Hypo-osmolality and hyponatremia; L02.411 Cutaneous abscess of right axilla; E11.9 Type 2 diabetes mellitus without complications; L03.313 Cellulitis of chest wall; L03.111 Cellulitis of right axilla; K21.9 Gastro-esophageal reflux disease without esophagitis; E87.6 Hypokalemia; B95.61 Methicillin susceptible Staphylococcus aureus infection as the cause of diseases classified elsewhere; E83.39 Other disorders of phosphorus metabolism; R56.9 Unspecified convulsions; K59.00 Constipation, unspecified; E66.01 Morbid (severe) obesity due to excess calories; F41.9 Anxiety disorder, unspecified; Z68.42 Body mass index [BMI] 45.0-49.9, adult
CPT/HCPCS: 36415; 71010; 76881; 80048; 80053; 80305; 81001; 82140; 82150; 83036; 83605; 83690; 83735; 83880; 84100; 84439; 84443; 84484; 85025; 85610; 85730; 87040; 87070; 87075; 87081; 87086; 87186; 87205; 90471; 90715; 93005; 96365; 96375; 99285; C9113; G0482; J0295; J0690; J1100; J1885; J2001; J2060; J2175; J2250; J2405; J2704; J3010; J3480; J3490; J7030; J7060; J7120; Q0092

== ENCOUNTER 2017-01-01 12:40 | Emergency (ER) | payer OTHER ==
[~2017-01-01] VITALS: Ht 177.8 cm; Wt 140.2 kg
[~2017-01-01 12:40] MED LIST: BACTO TP; CHLO118S2 TP; LACT1.4C PO; SULF-59 PO
[2017-01-01 13:00] VITALS: BP 136/79
[2017-01-01] MEDS: ALPRAZolam 0.5 MG TAB PO ONE (13:17)
[2017-01-01] MEDS ORDERED: ALPRAZolam 0.25 MG TAB PO ONE (14:10)
[2017-01-01 14:50] VITALS: BP 139/79
== END 2017-01-01 14:49 | disposition home or self-care (01) ==
LOC: MED 12:40
DX: F41.1 Generalized anxiety disorder (principal)
CPT/HCPCS: 99284; 99285

== ENCOUNTER 2017-10-07 00:24 | Emergency (ER) | payer OTHER ==
[~2017-10-07] VITALS: Ht 170.2 cm; Wt 136.1 kg
[2017-10-07 00:33] VITALS: BP 136/90
--- NOTE | 2017-10-07 00:35 | NUR ---
TO BED #11 AMBULATORY, REPORT GIVEN TO AURY JEWELL
--- NOTE | 2017-10-07 00:48 | NUR ---
26/M CAME IN W C/O PAIN TO LEFT BREAST SECONDARY TO CELLULITIS. LEFT BREAST NOTED WITH REDNESS, EDEMA AND CYST, WARM TO TOUCH AND TENDER, SKIN IS INTACT. REPORTS FEVER AND NAUSEA. DENIES V/D. PMH: CYST TO RT ARMPIT
[2017-10-07] MEDS ORDERED: LIDOCAINE/EPI 1% 1:100000 20 ML VIAL INJ ONE (01:10)
[2017-10-07] MEDS ORDERED: NEOMYCIN/POLYMYXIN/BACITRACIN 0.9 GM/1 PKT TP ONE (01:10)
[2017-10-07] MEDS ORDERED: VANCOMYCIN 1,000 MG in DEXTROSE 5% 250 ML IV ONE (01:15)
--- NOTE | 2017-10-07 01:19 | NUR ---
I&D Procedure done by Dr VELAZQUEZ. 10ML amt of bleeding noted. Wound packed with PLAIN PACKING . DSD applied. Pt procedure. Wound care discussed w/ patient.
--- NOTE | 2017-10-07 01:19 | NUR ---
Dr. Krause evaluating patient at bedside.
[2017-10-07] MEDS ORDERED: VANCOMYCIN 1,000 MG VIAL ONE (01:23)
--- NOTE | 2017-10-07 03:06 | NUR ---
Patient discharged with v/s stable. Written and verbal after care instructions given and explained BY DR VELAZQUEZ. Patient alert, oriented and verbalized understanding of instructions. Ambulatory with steady gait. All questions addressed prior to discharge. ID band removed. Patient advised to follow up with PMD. Rx of keflex and bactrim given. Patient educated on indication of medication including possible reaction and side effects. Opportunity to ask questions provided and answered. IV removed, catheter intact and site benign. Applied folded 4x4 gauze and tape to stop bleeding.
[2017-10-07 03:10] VITALS: BP 128/72
== END 2017-10-07 03:37 | disposition home or self-care (01) ==
LOC: MED 00:24
DX: L03.313 Cellulitis of chest wall (principal); Z79.899 Other long term (current) drug therapy
CPT/HCPCS: 10060; 87070; 87075; 87186; 99284; J2001; J3370; J7060

== ENCOUNTER 2017-10-09 09:25 | Emergency (ER) | payer OTHER ==
[~2017-10-09] VITALS: Ht 170.2 cm; Wt 136.1 kg
[2017-10-09 09:32] VITALS: BP 117/67
[2017-10-09 10:11] VITALS: BP 117/67
== END 2017-10-09 10:12 | disposition home or self-care (01) ==
LOC: MED 09:25
DX: N61.0 Mastitis without abscess (principal)
CPT/HCPCS: 99281; 99282